=== PATIENT | male | born 1990 | race Caucasian/White ===

== ENCOUNTER 2021-12-13 14:53 | Emergency (ER) | payer OTHER ==
[~2021-12-13] VITALS: Ht 175.3 cm; Wt 83.9 kg
[2021-12-13] MEDS ORDERED: LEVOFLOXACIN500 MG PO (21:11)
== END 2021-12-13 21:51 | disposition home or self-care (01) ==
LOC: ER 14:53
DX: J03.90 Acute tonsillitis, unspecified (principal); B96.0 Mycoplasma pneumoniae [M. pneumoniae] as the cause of diseases classified elsewhere; Z03.818 Encounter for observation for suspected exposure to other biological agents ruled out